=== PATIENT | female | born 1995 | race American Indian/Alaskan Native ===

== ENCOUNTER 2017-01-24 16:24 | Emergency (ER) | payer BC ==
[2017-01-24 16:30] VITALS: BP 127/84
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
[2017-01-24] MEDS ORDERED: FUL-GLO OP ONE (19:35)
[2017-01-24] MEDS ORDERED: TETRACAINE 0.5% OD ONE (19:36)
[2017-01-24] MEDS ORDERED: BOOSTRIX IM ONE (19:59)
== END 2017-01-24 20:36 | disposition home or self-care (01) ==
LOC: ED 16:24
DX: S05.01XA Injury of conjunctiva and corneal abrasion without foreign body, right eye, initial encounter (principal); H11.31 Conjunctival hemorrhage, right eye; I10 Essential (primary) hypertension; E11.9 Type 2 diabetes mellitus without complications; K21.9 Gastro-esophageal reflux disease without esophagitis; J45.909 Unspecified asthma, uncomplicated; E66.9 Obesity, unspecified; X58.XXXA Exposure to other specified factors, initial encounter; Y93.89 Activity, other specified; Y99.8 Other external cause status; Y92.009 Unspecified place in unspecified non-institutional (private) residence as the place of occurrence of the external cause
CPT/HCPCS: 90471; 90715

== ENCOUNTER 2020-03-22 21:33 | Emergency (ER) | payer BC ==
[2020-03-22] MEDS ORDERED: HYDROmorphone 1 MG/1 ML INJ ONE (21:34)
[2020-03-22] MEDS ORDERED: ONDANSETRON 4 MG/2 ML INJ ONE (21:35)
[2020-03-22] MEDS ORDERED: SODIUM CHLORIDE 0.9% 1000 ML 1,000 ML IV ONE (21:35)
[2020-03-22] MEDS ORDERED: ONDANSETRON 4 MG/2 ML INJ IV ONE (21:35)
[2020-03-22] MEDS ORDERED: HYDROmorphone 1 MG/1 ML INJ IV ONE ×2 (21:35→23:05)
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
[2020-03-22 21:59] LABS: Basophils % (Auto) 0.1 % (0.0-1.8); Eosinophils # (Auto) 0.2 K/mm3 (0.0-0.4); Eosinophils % (Auto) 1.7 % (0.0-4.3); Hematocrit 32.9 % (30.3-42.9); Hemoglobin 10.4 gm/dl (10.1-14.3); Lymphocytes # (Auto) 3.3 K/mm3 (1.2-5.4); Lymphocytes % (Auto) 30.1 % (13.4-35.0); Mean Corpuscular HGB Conc 32 % (30-34); Mean Corpuscular Volume 78 fl (79-97); Monocytes # (Auto) 0.7 K/mm3 (0.0-0.8); Monocytes % (Auto) 6.6 % (0.0-7.3); Platelet Count 384 K/mm3 (140-440); Red Blood Count 4.21 M/mm3 (3.65-5.03); Red Cell Distribution Width 15.4 % (13.2-15.2)
[2020-03-22 22:20] LABS: Blood Urea Nitrogen 11 mg/dL (7-17); Calcium 8.8 mg/dL (8.4-10.2); Hemolysis Index 0
[2020-03-22 22:26] LABS: BUN/Creatinine Ratio 16
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
[2020-03-23] MEDS ORDERED: POTASSIUM CHLORIDE ER 20 MEQ TAB PO ONE (00:51)
[2020-03-23] MEDS ORDERED: BACITRACIN ZINC OINT 28.4 GM TP ONE (01:24)
[2020-03-23] MEDS ORDERED: SODIUM CHLORIDE 0.9% 1000 ML 1,000 ML IV ONE ×2 (01:24→01:36)
[2020-03-23] MEDS ORDERED: HYDROmorphone 1 MG/1 ML INJ IV ONE (01:40)
[2020-03-23 03:36] VITALS: BP 140/83
== END 2020-03-23 03:20 | disposition home or self-care (01) ==
LOC: ED 21:33
DX: S52.091B Other fracture of upper end of right ulna, initial encounter for open fracture type I or II (principal); S52.1 Fracture of upper end of radius; W34.09XA Accidental discharge from other specified firearms, initial encounter; Y93.89 Activity, other specified; Y92.89 Other specified places as the place of occurrence of the external cause; Y99.8 Other external cause status
CPT/HCPCS: 29105; 36415; 73070; 80048; 84703; 85025; 86850; 86900; 86901; 96365; 96375; 96376; 99284; J0690; J1170; J2405; J7030